=== PATIENT | female | born 1980 | race Caucasian/White ===

== ENCOUNTER → 2020-07-21 15:34 | Outpatient (CLI) | payer BC, SELFPAY ==
--- NOTE | ~2020-07-21 | MM_ITS ---
EXAMINATION: MM screening deshawn BI w willem HISTORY: Screening TECHNIQUE: Craniocaudal and mediolateral oblique 3-D tomosynthesis images were obtained and synthetic 2-D images were generated. CAD analysis was submitted and interpreted. COMPARISON: No prior mammogram is available for comparison at this institution. BREAST PARENCHYMAL COMPOSITION: The breasts are heterogeneously dense, which may obscure small masses . FINDINGS: There are bilateral breast asymmetries in the upper aspect of the right breast and upper ou ter quadrant of the left breast. There are no suspicious calcifications. IMPRESSION: 1. Bilateral breast asymmetries. 2. Additional mammographic views and possible breast ultrasound are recommended. BI-RADS Category 0: Incomplete: Needs additional imaging evaluation. Reviewed, dictated and finalized at location A. IMPRESSION: 1. Bilateral breast asymmetries. 2. Additional mammographic views and possible breast ultrasound are recommended . BI-RADS Category 0: Incomplete: Needs additional imaging evaluation.
== END ==
PROVIDERS: Visit Provider Obstetrics & Gynecology
DX: Z12.31 Encounter for screening mammogram for malignant neoplasm of breast (principal); R92.8 Other abnormal and inconclusive findings on diagnostic imaging of breast
CPT/HCPCS: 77063; 77067

== ENCOUNTER → 2020-08-07 09:05 | Outpatient (CLI) | payer BC, SELFPAY ==
--- NOTE | ~2020-08-07 | MMUS_ITS ---
EXAMINATION: MM diagnostic mammo BI, US breast BI limited HISTORY: Bilateral mammographic asymmetries reported in the upper breasts on screening mamm ogram TECHNIQUE: Additional 3-D tomosynthesis images of were performed and synthetic 2-D images were genera aj. CAD analysis was submitted and interpreted. High resolution breast ultrasound was performed. COMPARISON: 07/13/2020 bilateral digital screening mammogram FINDINGS: MAMMOGRAPHIC FINDINGS: No suspicious mass or architectural distortion is evident. The heterogeneous dense stroma may obscure masses. Ultrasound correlation of the upper breast was performed. ULTRASOUND: There is no evidence of focal abnormal solid or cystic lesion or suspicious shadowing of either breas t in the upper quadrants. IMPRESSION: 1. No mammographic evidence of malignancy 2. Routine mammographic screening is recommended BI-RADS Category 1: Negative Reviewed, dictated and finalized at location A. IMPRESSION: 1. No mammographic evidence of malignancy 2. Routine mammographic screening is recommended BI-RADS Category 1: Negative
== END ==
PROVIDERS: Visit Provider Obstetrics & Gynecology
DX: R92.8 Other abnormal and inconclusive findings on diagnostic imaging of breast (principal)
CPT/HCPCS: 76642; 77066

== ENCOUNTER 2021-08-22 15:58 | Emergency (ER) | payer BC, SELFPAY ==
--- NOTE | ~2021-08-22 | CT_ITS ---
EXAMINATION: CT abdomen pelvis wo con DATE: 08/22/2021 17:38 INDICATION: Lower abdominal pain TECHNIQUE: Computed tomography (CT) of the abdomen and pelvis was performed without intravenous contr ast. The dose-length product (DLP) was 231.61 mGy-cm. Automated exposure control and iterative recons truction technique were employed. COMPARISON: None FINDINGS: The lung bases are clear. The heart size is normal. The liver, spleen, pancreas, gallbladde r, and adrenal glands are normal. The kidneys are unremarkable. No stones are identified in the kidne ys, ureters, or bladder. There is no hydronephrosis or hydroureter. No pathologically enlarged abdomi nal or pelvic lymph nodes are identified. There is no free intraperitoneal gas or evidence of bowel o bstruction. There is circumferential wall thickening of the urinary bladder with mild surrounding fat stranding. The appendix measures up to 8 mm at its tip but is gas-filled and thin-walled, consistent with normal variation. There is mild lumbar spondylosis. IMPRESSION: 1. Mild circumferential wall thickening of the urinary bladder with surrounding fat stranding, consis tent with urinary tract infection. Reviewed, dictated and finalized at location A. IMPRESSION: 1. Mild circumferential wall thickening of the urinary bladder with surrounding fat stranding, consistent with urinary tract infection.
[2021-08-22 16:05] VITALS: BP 118/78; PULSE 88; RESP 20; TEMP 37.1; O2SAT 100
[2021-08-22 17:11] LABS: Basophils Percent Auto 0.2 % (0.2-1.2); Eosinophils Percent Auto 0.1 % (0-4.4); Hematocrit 37.1 % (37.0-47.0); Hemoglobin 12.4 g/dL (12.0-15.0); Immature Granulocyte Absolute 0.04 K/mm3 (0.00-0.031); Immature Granulocyte Percent A 0.3 % (0-0.5); Lymphocytes Percent Auto 8.1 % (18.3-44.2); Mean Corpuscular HGB Conc 33.4 g/dl (32-36); Mean Corpuscular Hemoglobin 30.3 pg (26-34); Mean Corpuscular Volume 90.7 fl (80-100); Mean Platelet Volume 10.4 fl (7.4-10.4); Monocytes Absolute Auto 0.6 K/mm3 (0.1-0.6); Monocytes Percent Auto 4.3 % (2.6-8.5); Neutrophils Absolute Auto 11.9 K/mm3 (1.3-6.7); Platelet Count Result 210 k/mm3 (150-375); Red Blood Count 4.09 M/mm3 (4.2-5.4); Red Cell Distribution Width 12.7 % (11.5-14.5); White Blood Count 13.6 K/mm3 (4.5-10.0)
[2021-08-22 17:18] LABS: Add Urine Microscopic? YES; Appearance Urine Cloudy (Clear); Bacteria Urine Trace /hpf; Bilirubin Urine Negative (Negative); Blood Urine 3+ (Negative); Color Urine Red (Yellow); Glucose Urine UA Negative (Negative); Ketones Urine Trace mg/dL (Negative); Leukocyte Esterase Ur 3+ LEU/UL (Negative); Nitrate Urine Negative (Negative); Protein Urine 2+ mg/dL (Negative); RBC Urine >75 /hpf (0-2); Specific Grav Ur 1.005 (1.001-1.035); Squamous Epithelial Cell Urine Rare /hpf (Few); Urobilinogen Urine Negative mg/dL (<2.0); WBC Urine >75 /hpf
[2021-08-22 17:20] LABS: Anion Gap 10 mmol/L (8-16); Blood Urea Nitrogen 11 mg/dL (7-17); Calcium 9.9 mg/dL (8.4-10.2); Carbon Dioxide 26 mmol/L (22-30); Chloride 103 mmol/L (98-107); Estimated CRCL calculation 56 ml/min; Estimated Glomerular Filt Rate 55; Glucose 117 mg/dL (65-110); Potassium 3.9 mmol/L (3.4-5.0); Sodium 139 mmol/L (137-145)
--- NOTE | 2021-08-22 17:22 | ED.ABDPAIN ---
HPI - Abdominal Pain General Chief Complaint: Vaginal Bleeding <Laurence Silverio PA-C - Last Filed: 08/22/21 19:18> Stated Complaint: BLOOD IN URINE <aLurence Silverio PA-C - Last Filed: 08/22/21 19:18> Time Seen by Provider: 08/22/21 16:50 <Laurence Silverio PA-C - Last Filed: 08/22/21 19:18> Source: patient <LISA Nath Last Filed: 08/22/21 19:18> Mode of arrival: ambulatory <LISA Nath Last Filed: 08/22/21 19:18> Limitations: no limitations <Laurence Silverio PA-C - Last Filed: 08/22/21 19:18> History of Present Illness HPI narrative: This is a 41 year old female that presents to the ER for dysuria present since this afternoon. Associated with hematuria. Reports lower abdominal pain. Denies fever, or vomiting. <aLurence Silverio PA-C - Last Filed: 08/22/21 19:18> Related Data Allergies/Adverse Reactions: Allergies Allergy/AdvReac Type Severity Reaction Status Date / Time No Known Allergies Allergy Verified 08/22/21 15:05 <Laurence Silverio PA-C - Last Filed: 08/22/21 19:18> Review of Systems Review of Systems: CONSTITUTIONAL: Denies fever GASTROINTESTINAL: Reports abdominal pain, nausea. Denies vomiting GENITOURINARY: Reports dysuria and hematuria. <Laurence Silverio PA-C - Last Filed: 08/22/21 19:18> All systems reviewed & are unremarkable except as noted in HPI and below <LISA Nath Last Filed: 08/22/21 19:18> [facility] Past Medical History Medical History: Medical History BMI 20.0-20.9, adult COVID-19 <LISA Nath Last Filed: 08/22/21 19:18> Family History Family History: Family History Father COVID-19 Mother COVID-19 Sibling No problems noted. 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 HEAD: Normocephalic, atraumatic. EYES: EOMI. CHEST: Clear to auscultation. No respiratory distress. No wheezes rales or rhonchi HEART: Regular rate and rhythm. No murmur heard. Normal peripheral pulses. ABDOMEN: Soft, nondistended, normal active bowel sounds. Tender to palpation throughout the lower abdomen, without guarding. No CVA tenderness EXTREMITIES: Normal range of motion. No edema. SKIN: Warm, dry, no rash. NEURO: No focal deficits. Alert and oriented x3. PSYCH: Normal mood and affect <Laurence Silverio PA-C - Last Filed: 08/22/21 19:18> Course [employer]/PA Physician Supervision I did not see this patient nor was the care plan discussed with me. I was available for evaluation and consultation, I agree with the documentation as above <Swapnil Gutiérrez MD - Last Filed: 08/22/21 20:33> Vital Signs Vital signs: Vital Signs Temperature 37.1 C 08/22/21 16:05 Pulse Rate 88 08/22/21 16:05 Respiratory Rate 20 08/22/21 16:05 Blood Pressure 118/78 08/22/21 16:05 Pulse Oximetry 100 08/22/21 16:05 Temperature 37.1 C 08/22/21 16:05 Pulse Rate 63 08/22/21 19:57 Respiratory Rate 16 08/22/21 19:57 Blood Pressure 106/74 08/22/21 19:57 Pulse Oximetry 99 08/22/21 19:57 <Laurence Silverio PA-C - Last Filed: 08/22/21 19:18> Vital Signs Temperature 37.1 C 08/22/21 16:05 Pulse Rate 88 08/22/21 16:05 Respiratory Rate 20 08/22/21 16:05 Blood Pressure 118/78 08/22/21 16:05 Pulse Oximetry 100 08/22/21 16
[2021-08-22] MEDS: SODIUM CHLORIDE 0.9% IV 1,000 ML 999 ML IV CONT (17:39)
[2021-08-22] MEDS: PHENAZOPYRIDINE HCL 100 MG TABLET 200 MG PO (18:48)
[2021-08-22 19:12] VITALS: BP 109/77; PULSE 69; RESP 16; O2SAT 99
--- NOTE | 2021-08-22 19:12 | PC.NURSE ---
Report received and care of pt assumed at this time.
[2021-08-22 19:57] VITALS: BP 106/74; PULSE 63; RESP 16; O2SAT 99
== END 2021-08-22 19:58 | disposition home or self-care (01) ==
PROVIDERS: Physician Assistant; Emergency Provider Emergency Medicine; PCP Family Medicine
DX: N30.01 Acute cystitis with hematuria (principal); Z86.16 Personal history of COVID-19
CPT/HCPCS: 36415; 74176; 80048; 81001; 81025; 85025; 87077; 87086; 87088; 87186; 96361; 96365; 96375; 99284; A9270; J0131; J0696; J7030